=== PATIENT | female | born 1995 | race Caucasian/White ===

== ENCOUNTER 2021-02-21 15:51 | Emergency (ER) | payer OTHER, SELFPAY ==
[2021-02-21 17:02] LABS: Urine Blood Trace-intact (Negative); Urine Glucose Negative (Negative); Urine Protein 1+ (Negative)
[2021-02-21 17:13] LABS: Urine Bacteria <20 /HPF (<20); Urine RBC <5 /HPF (NONE SEEN)
[2021-02-21 17:23] LABS: Albumin 3.2 g/dL (3.4-5.0); Bilirubin Direct 0.1 mg/dL (0-0.2); Bilirubin Total 0.4 mg/dL (0.2-1.0); Potassium 3.3 mmol/L (3.5-5.1); Protein, Total 7.7 g/dL (6.4-8.2)
[2021-02-21] MEDS ORDERED: KETOROLAC 30 MG/ML INJ ONE (17:32)
[2021-02-21] MEDS ORDERED: Ringers Lactate 1,000 ML IV ONE (17:32)
[2021-02-21] MEDS ORDERED: ONDANSETRON 4 MG/2 ML VIAL ONE (17:32)
[2021-02-21 17:37] LABS: Absolute Lymphocytes (CBC) 1.1 K/uL (0.7-4.9); Basophils % 0.1 % (0-1.3); Hematocrit 34.5 % (36.0-45.0); Lymphocytes % 9.5 % (15.3-44.8); RBC Red Blood Cell Count 3.79 M/uL (3.86-4.86)
--- NOTE | 2021-02-21 18:20 | RAD REPORT ---
EXAM DESCRIPTION: CTAbdomen Pelvis W Contrast - 02/21/2021 6:04 pm CLINICAL HISTORY: . Fever;Flank pain COMPARISON: No comparisons TECHNIQUE: Biphasic CT imaging of the abdomen and pelvis was performed with 100 ml non-ionic IV cont rast. All CT scans are performed using dose optimization technique as appropriate and may include automated exposure control or mA/KV adjustment according to patient size. FINDINGS: Lower chest: Small right effusion . Liver: No acute abnormality or suspicious lesions. Biliary: No biliary ductal dilatation. Stomach: No significant focal abnormality. Duodenum: No significant focal abnormality. Pancreas: No significant abnormality. Spleen: No significant abnormality. Adrenal: No suspicious lesions. Kidney/ureter: No hydronephrosis. No renal calculi. Patchy right renal hypoenhancement. Retroperitoneum: No retroperitoneal adenopathy. Vascular: No aneurysm. Bowel: No significant focal abnormality. Peritoneum: Trace pelvic free fluid. Bladder: Grossly unremarkable. Reproductive: Right adnexal lesion, likely physiologic. Bones: No acute fracture. Other: n/a IMPRESSION: Findings concerning for right-sided pyelonephritis. No abscess identified. No hydronephr osis.
--- NOTE | 2021-02-21 18:34 | EDPHYS ---
Physician Documentation [facility] Name: Darling Das Age: 25 yrs Sex: Female : 1995 Arrival Date: 02/21/2021 Time: 15:51 Bed 16 Private MD: ED Physician Rakesh Zhou HPI: 02/21 18:07 This 25 yrs old Female presents to ER via Ambulatory with complaints of Flank jr8 Pain, Abdominal Pain - RLQ. 18:07 Onset: The symptoms/episode began/occurred acutely, yesterday. Modifying factors: The jr8 symptoms are alleviated by nothing. the symptoms are aggravated by movement. Associated signs and symptoms: Pertinent positives: fever, nausea. Severity of pain: At its worst the pain was moderate in the emergency department the pain is unchanged. The patient has not experienced similar symptoms in the past. The patient has been recently seen by a physician:. Patient was seen yesterday by her primary care and had a urinalysis and CBC done. Patient stated that she had bacteria in her urine and was put on Cipro. They evaluated her yesterday and was having right lower quadrant pain with extension to the right flank and was concern for pyelonephritis. Patient stated that her urine dip had improved this morning but has been having increase in pain.. 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 - Social history:: Smoking status: Patient denies any tobacco usage or history of. ROS: 18:07 Eyes: Negative for injury, pain, redness, and discharge, ENT: Negative for injury, jr8 pain, and discharge, Neck: Negative for injury, pain, and swelling, Cardiovascular: Negative for chest pain, palpitations, and edema, Respiratory: Negative for shortness of breath, cough, wheezing, and pleuritic chest pain, MS/Extremity: Negative for injury and deformity, Skin: Negative for injury, rash, and discoloration, Neuro: Negative for headache, weakness, numbness, tingling, and seizure. 18:07 : Negative for injury, bleeding, discharge, and swelling. 18:07 Constitutional: Positive for fever. 18:07 Abdomen/GI: Positive for abdominal pain, nausea. 18:07 Back: Positive for flank pain, on the right. Exam: 18:07 Constitutional: This is a well developed, well nourished patient who is awake, alert, jr8 and in no acute distress. Cardiovascular: Regular rate and rhythm with a normal S1 and S2. No gallops, murmurs, or rubs. Normal PMI, no JVD. No pulse deficits. Respiratory: Lungs have equal breath sounds bilaterally, clear to auscultation and percussion. No rales, rhonchi or wheezes noted. No increased work of breathing, no retractions or nasal flaring. Skin: Warm, dry with normal turgor. Normal color with no rashes, no lesions, and no evidence of cellulitis. MS/ Extremity: Pulses equal, no cyanosis. Neurovascular intact. Full, normal range of motion. Neuro: Awake and alert, GCS 15, oriented to person, place, time, and situation. Cranial nerves II-XII grossly intact. Motor strength 5/5 in all extremities. Sensory grossly intact. Cerebellar exam normal. Normal gait. 18:07 Abdomen/GI: Inspection: abdomen appears normal, Bowel sounds: active, all quadrants, Palpation: soft, in all quadrants, moderate abdominal tenderness, in the anterior aspect of right lateral abdomen and right lower quadrant, mass, is not appreciated, rebound tenderness, is not appreciated, voluntary guarding, is not appreciated, involuntary guarding, is not appreciated, no appreciated organomegaly, Indicators: McBurney's point is not tender, Gerard's sign is negative, Rovsing's sign is negative, Liver: tenderness, is not appreciated. 18:07 Back: ROM is normal, normal spinal alignment noted, CVA tenderness, that is moderate, is noted on the right. Vital Signs: 15:56 BP 128 / 80; Pulse 103; Resp 17; Temp 99.5(O); Pulse Ox 100% on R/A; Weight 62.14 kg; tw2 Height 5 ft. 7 in. (170.18 cm); Pain 10/10; 18:45 BP 122 / 79; Pulse 97; Resp 18; Pulse Ox 100% on R/A; es2 15:56 Body Mass Index 21.46 (62.14 kg, 170.18 cm) tw2 MDM: 16:05 Patient medically screened. [facility] 18:07 Data reviewed: vital signs, nurses notes, lab test result(s), radiologic studies, CT jr8 scan. Data interpreted: Pulse oximetry: on room air is 100 %. Interpretation: normal. Counseling: I had a detailed discussion with the patient and/or guardian regarding: the historical points, exam findings, and any diagnostic results supporting the discharge/admit diagnosis, lab results, radiology results, the need for outpatient follow up, a family practitioner, to return to the emergency department if symptoms worsen or persist or if there are any questions or concerns that arise at home. 18:33 ED course: Patient is feeling markedly better. Hemodynamically stable at this time and jr8 able to tolerate fluids by mouth. Will have patient continue the Cipro for now and wait for sensitivity report. Knows to come back if she is worse.. 02/21 16:09 Order name: Basic Metabolic Panel; Complete Time: 17:26 [facility] 02/21 16:09 Order name: CBC with Diff; Complete Time: 18:07 [facility] 02/21 16:09 Order name: Hepatic Function; Complete Time: 17:26 [facility] 02/21 16:09 Order name: Lipase; Complete Time: 17:26 [facility] 02/21 16:09 Order name: Urine Microscopic Only; Complete Time: 17:26 [facility] 02/21 17:01 Order name: Urine Dipstick-Ancillary; Complete Time: 17:06 [facility] 02/21 16:40 Order name: CT Abd/Pelvis - IV Contrast Only; Complete Time: 18:22 [facility] 02/21 17:10 Order name: Urine --Ancillary (enter results) 02/21 17:11 Order name: Urine --Ancillary [facility] 02/21 17:15 Order name: Urine Culture [facility] 02/21 16:09 Order name: IV Saline Lock; Complete Time: 17:09 [facility] 02/21 16:09 Order name: Labs collected and sent; Complete Time: 17:09 [facility] 02/21 16:09 Order name: Urine Dipstick-Ancillary (obtain specimen); Complete Time: 17: [facility] 02/21 16:09 Order name: Urine Test (obtain specimen); Complete Time: 17:09 jr8 Administered Medications: 17:16 Drug: Ketorolac 15 mg Route: IVP; Site: right antecubital; es2 17:58 Follow up: Response: No adverse reaction es2 17:16 Drug: Ringers - Lactated Ringers Solution 1000 ml Route: IV; Rate: bolus; Site: right es2 antecubital; 17:58 Follow up: Response: No adverse reaction; IV Status: Completed infusion es2 17:58 Follow up: Response: No adverse reaction; IV Status: Completed infusion; IV Intake: es2 1000ml 17:17 Drug: Zofran (Ondansetron) 4 mg Route: IVP; Site: right antecubital; es2 17:59 Follow up: Response: No adverse reaction es2 18:39 Drug: Potassium Chloride 40 mEq Route: PO; es2 18:46 Follow up: Response: No adverse reaction es2 18:44 Drug: Rocephin (cefTRIAXone) 1 grams Route: IV; Rate: calculated rate; Site: right es2 antecubital; 18:45 Follow up: Response: No adverse reaction; IV Status: Completed infusion es2 Disposition Summary: 02/21/21 18:34 Discharge Ordered Location: Home jr8 Problem: new jr8 Symptoms: have improved jr8 Condition: Stable jr8 Diagnosis - Pyelonephritis acute jr8 Followup: jr8 - With: Private Physician - When: 5 - 6 days - Reason: Recheck today's complaints, Continuance of care, Re-evaluation by your physician Discharge Instructions: - Discharge Summary Sheet jr8 - Pyelonephritis, Adult jr8 Forms: - Medication Reconciliation Form jr8 - Thank You Letter jr8 - Antibiotic Education jr8 - Prescription Opioid Use jr8 Prescriptions: - Ibuprofen 800 mg Oral Tablet - take 1 tablet by ORAL route every 12 hours As needed take with food; 20 tablet; jr8 Refills: 0, Product Selection Permitted - promethazine 25 mg Oral Tablet - take 1 tablet by ORAL route every 6 hours As needed; 20 tablet; Refills: 0, jr8 Product Selection Permitted Addendum: 02/24/2021 17:41 Co-signature as Attending Physician, Rakesh gilmore Signatures: Dispatcher [employer] Bishop Vergara PA PA jr8 Diane Yarbrough RN RN tw2 Rakesh Zhou MD MD ma2 Maricruz Crook RN RN es2
--- NOTE | 2021-02-21 18:34 | ER ---
Nurse's Notes [facility] Name: Darling Das Age: 25 yrs Sex: Female : 1995 Arrival Date: 02/21/2021 Time: 15:51 Bed 16 Private MD: Diagnosis: Pyelonephritis acute Presentation: 02/21 15:56 Chief complaint: Patient states: fever started Friday with abdominal pain and back tw2 pain. its gotten worse today. 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 N/V. Coronavirus screen: fever, nausea, vomiting. Ebola Screen: Patient denies travel to an Ebola-affected area in the 21 days before illness onset. Initial Sepsis Screen: Does the patient meet any 2 criteria? HR > 90 bpm. No. Patient's initial sepsis screen is negative. Does the patient have a suspected source of infection? No. Patient's initial sepsis screen is negative. Risk Assessment: Do you want to hurt yourself or someone else? Patient reports no desire to harm self or others. Onset of symptoms was February 21, 2021. 15:56 Method Of Arrival: Ambulatory tw2 15:56 Acuity: J LUIS 3 tw2 Triage Assessment: 15:59 General: Appears uncomfortable, slender, well groomed, Behavior is calm, cooperative, tw2 appropriate for age. Pain: Complains of pain in right flank, abdomen. GI: Reports lower abdominal pain, upper abdominal pain, nausea, vomiting. 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 - Social history:: Smoking status: Patient denies any tobacco usage or history of. Screenin:08 Abuse screen: Denies threats or abuse. Denies injuries from another. Nutritional es2 screening: No deficits noted. Tuberculosis screening: No symptoms or risk factors identified. Fall Risk Gait- Normal/Bed Rest/Wheelchair (0 pts). Assessment: 16:03 Reassessment: Patient and/or family updated on plan of care and expected duration. Pain es2 level reassessed. Patient is alert, oriented x 3, equal unlabored respirations, skin warm/dry/pink. General: Appears well developed, well nourished, Behavior is calm, cooperative, appropriate for age. Pain: Complains of pain in back and abdomen - right side Pain currently is 10 out of 10 on a pain scale. Neuro: Level of Consciousness is awake, alert, obeys commands, Oriented to person, place, time, situation, Appropriate for age Gait is steady, Speech is normal, Facial symmetry appears normal. Cardiovascular: Capillary refill < 3 seconds Patient's skin is warm and dry. Respiratory: Airway is patent Respiratory effort is even, unlabored, Respiratory pattern is regular, symmetrical. GI: Abd is soft. : No signs and/or symptoms were reported regarding the genitourinary system. EENT: No signs and/or symptoms were reported regarding the EENT system. Derm: Skin is intact, Skin is dry, Skin is pink, warm \T\ dry. normal, Skin temperature is warm. Musculoskeletal: Capillary refill < 3 seconds, Range of motion: intact in all extremities. 19:32 Reassessment: Patient appears in no apparent distress at this time. Patient and/or jb4 family updated on plan of care and expected duration. Pain level reassessed. Patient is alert, oriented x 3, equal unlabored respirations, skin warm/dry/pink. Vital Signs: 15:56 BP 128 / 80; Pulse 103; Resp 17; Temp 99.5(O); Pulse Ox 100% on R/A; Weight 62.14 kg; tw2 Height 5 ft. 7 in. (170.18 cm); Pain 10/10; 18:45 BP 122 / 79; Pulse 97; Resp 18; Pulse Ox 100% on R/A; es2 15:56 Body Mass Index 21.46 (62.14 kg, 170.18 cm) tw2 ED Course: 15:51 Patient arrived in ED. am2 15:58 Triage completed. tw2 15:59 Arm band placed on. tw2 16:00 Maricruz Crook RN is Primary Nurse. es2 16:04 Bishop Jimenez PA is PHCP. jr8 16:04 Rakesh Zhou MD is Attending Physician. jr8 17:09 Urine Microscopic Only Sent. es2 17:09 Basic Metabolic Panel Sent. es2 17:09 CBC with Diff Sent. es2 17:09 Hepatic Function Sent. es2 17:09 Lipase Sent. es2 17:58 Urine --Ancillary (enter results) Sent. es2 18:04 CT Abd/Pelvis - IV Contrast Only In Process Unspecified. EDMS 19:32 Patient has correct armband on for positive identification. Call light in reach. Side jb4 rails up X 1. Pulse ox on. NIBP on. 19:32 No provider procedures requiring assistance completed. IV discontinued, intact, jb4 bleeding controlled, No redness/swelling at site. Pressure dressing applied. Administered Medications: 17:16 Drug: Ketorolac 15 mg Route: IVP; Site: right antecubital; es2 17:58 Follow up: Response: No adverse reaction es2 17:16 Drug: Ringers - Lactated Ringers Solution 1000 ml Route: IV; Rate: bolus; Site: right es2 antecubital; 17:58 Follow up: Response: No adverse reaction; IV Status: Completed infusion es2 17:58 Follow up: Response: No adverse reaction; IV Status: Completed infusion; IV Intake: es2 1000ml 17:17 Drug: Zofran (Ondansetron) 4 mg Route: IVP; Site: right antecubital; es2 17:59 Follow up: Response: No adverse reaction es2 18:39 Drug: Potassium Chloride 40 mEq Route: PO; es2 18:46 Follow up: Response: No adverse reaction es2 18:44 Drug: Rocephin (cefTRIAXone) 1 grams Route: IV; Rate: calculated rate; Site: right es2 antecubital; 18:45 Follow up: Response: No adverse reaction; IV Status: Completed infusion es2 Intake: 17:58 IV: 1000ml; Total: 1000ml. es2 Outcome: 18:34 Discharge ordered by MD. rosales 19:32 Discharged to home ambulatory, with family. jb4 19:32 Condition: stable 19:32 Discharge instructions given to patient, Instructed on discharge instructions, follow up and referral plans. medication usage, Demonstrated understanding of instructions, follow-up care, medications, Prescriptions given X 2. 19:33 Patient left the ED. jb4 Signatures: Dispatcher [employer] EDMT Bishop Jimenez PA PA jr8 Wise, Diane, RN RN tw2 Seferino Guevara RN RN jb4 Lety Singh am2 Maricruz Crook RN RN es2
[2021-02-21] MEDS ORDERED: POTASSIUM CL SA 10 MEQ TAB PO ONE (19:02)
[2021-02-21] MEDS ORDERED: CEFTRIAXONE/SWI 1gm 1 GM/10 ML SYR ONE (19:02)
[2021-02-21 20:10] VITALS: TEMP 99.5; O2SAT 100
[2021-02-21 20:11] VITALS: BP 122/79
== END 2021-02-21 19:33 | disposition home or self-care (01) ==
LOC: ER 15:51
DX: N12 Tubulo-interstitial nephritis, not specified as acute or chronic (principal)
CPT/HCPCS: 36415; 74177; 80048; 80076; 81003; 81015; 81025; 83690; 85025; 87086; 87088; 96365; 96375; 99284; J0696; J2405; J7120; Q9967